=== PATIENT | female | born 1965 | race Caucasian/White ===

== ENCOUNTER 2018-05-15 13:59 | Emergency (ER) | payer MEDICAID ==
[~2018-05-15] VITALS: Ht 152.4 cm; Wt 71.4 kg
[2018-05-15 14:25] VITALS: Ht 152.4 cm; Wt 71.4 kg
[2018-05-15] MEDS ORDERED: BENTYL 20 MG TA20 MG PO (14:35)
[2018-05-15] MEDS ORDERED: OMEPRAZOLE40 MG PO (14:35)
[2018-05-15] MEDS ORDERED: XANAX1 MG PO (14:35)
[2018-05-15] MEDS ORDERED: TORADOL10 MG PO (19:42)
[2018-05-15] MEDS ORDERED: ROBAXIN-750750 MG PO (19:42)
[2018-05-15 19:47] VITALS: BP 111/67
== END 2018-05-15 19:48 | disposition home or self-care (01) ==
LOC: D.ER 13:59
DX: M54.16 Radiculopathy, lumbar region (principal)